=== PATIENT | male | born 1980 | race Caucasian/White ===

== ENCOUNTER → 2016-12-29 | Outpatient (CLI) | payer OTHER | LOC: RAD 08:17 | PROVIDERS: ATTEND Physician Assistant | DX: M54.16 Radiculopathy, lumbar region (principal) | CPT/HCPCS: 72148 ==

== ENCOUNTER 2018-12-05 17:34 | Emergency (ER) | payer OTHER ==
[2018-12-05] MEDS ORDERED: LIDOCAINE 2% INJ (20 MG/ML) 20 ML MDV INJ ONE (18:28)
[2018-12-05] MEDS ORDERED: DIPH/PERTUSS(ACELL)/TETANUS VAC/PF 0.5 ML SYR (>=10YO) IM ONE ×2 (18:39→22:22)
--- NOTE | 2018-12-05 18:39 | ER Document Report ---
ED General - General Chief Complaint: Laceration Stated Complaint: LACERATION/RIGHT INDEX FINGER Notes: 38-year-old male with no past medical history presents to the emergency department for a laceration of his right index finger after smashing it on a work truck after some wood fell on it. He states he was wearing a glove, he felt a warm tucker and knew that it was bleeding so he took the glove off and put some pressure on it. He is able to move his fingers and has full sensation. Last tetanus greater than 5 years ago. No numbness or tingling. No fever, dizziness, lightheadedness. No shortness of breath no chest pain. No other complaints. TRAVEL OUTSIDE OF THE [place] IN LAST 30 DAYS: No - Related Data Allergies/Adverse Reactions: No Known Allergies Allergy (Unverified 12/05/18 17:38) Past Medical History - General Information source: Patient - Social History Smoking Status: Unknown if Ever Smoked Family History: None Patient has suicidal ideation: No Patient has homicidal ideation: No Renal/ Medical History: Denies: Hx Peritoneal Dialysis Review of Systems - Review of Systems Constitutional: See HPI EENT: No symptoms reported Cardiovascular: See HPI Respiratory: See HPI Gastrointestinal: No symptoms reported Genitourinary: No symptoms reported Male Genitourinary: No symptoms reported Musculoskeletal: See HPI Skin: See HPI Hematologic/Lymphatic: No symptoms reported Neurological/Psychological: See HPI Physical Exam - Notes Notes: PHYSICAL EXAMINATION: Reviewed vital signs and charting by RN GENERAL: Alert, interacts well. No acute distress. HEAD: Normocephalic, atraumatic. EYES: Pupils equal, round. Extraocular movements intact. ENT: Oral mucosa moist. NECK: Full range of motion. Supple. Trachea midline. EXTREMITIES: Moves all 4 extremities spontaneously. No cyanosis. Right index finger BACK: no cervical, thoracic, lumbar midline tenderness. No saddle anesthesia, normal distal neurovascular exam. NEUROLOGICAL: Alert and oriented x3. Normal speech. cranial nerves II through XII grossly intact. PSYCH: Normal affect, normal mood. SKIN: Warm, dry, normal turgor. Large longitudinal laceration on the right medial index finger that extends from the PIP to the MCP into the web between the index and ring fingers on the dorsal side. Active oozing blood. Did not visualize any bones, tendons or ligaments. Distal neurovascular exam intact, flexor and extensor tendons intact normal exam. Course - Re-evaluation Re-evalutation: 12/05/18 18:38 38-year-old male with right index finger laceration. Plan is to send him for x- ray of the right hand 3 views. Pending results will repair the wound with 5-0 Ethilon. Will give patient tetanus shot. 12/05/18 21:52 X-ray was negative for any fracture. Consult to Dr. Brennan to assess the wound. Wound repair completed after local anesthesia and wound cleansing. 5-0 Ethilon used. Patient tolerated the procedure well. Wound care instructions given with return precautions. 12/05/18 21:58 12/05/18 21:58 Procedures - Laceration/Wound Repair Right Proximal Finger 2nd digit Wound length (cm): 6 Wound's Depth, Shape: Irregular Laceration pre-procedure: Sterile PPE donned Anesthetic type: 2% Lidocaine Volume Anesthetic (mLs): 8 Wound explored: Clean, No foreign body removed Irrigated w/ Saline (mLs): 250 Wound Debrided: Minimal Wound Repaired With: Steri-strips Suture Size/Type: 5:0, Ethilon Layer Closure?: No Post-procedure wound care: Sterile dressing applied Post-procedure NV exam normal: Yes Complications: No Discharge - Discharge Clinical Impression: Laceration Condition: Good Disposition: HOME, SELF-CARE Instructions: Antibiotic Ointment Protection ([facility]), Laceration Care ([facility]), Oral Narcotic Medication ([facility]), Soap Cleansing ([facility]), Tetanus Immunization Given ([facility]) Additional Instructions: Please return to your primary doctor, the ED, or an urgent care in 7 days for suture removal. Return immediately if you develop spreading redness around the wound, pus from the wound, worsening pain, or a fever of >101. Keep the area clean and dry. Wash gently with soap and water twice daily and cover with antibiotic ointment. Forms: Return to Work
--- NOTE | 2018-12-05 18:52 | RADIOLOGY REPORT (SQ) ---
EXAM DESCRIPTION: HAND RIGHT 3 VIEWS COMPLETED DATE/TIME: 12/05/2018 6:43 pm REASON FOR STUDY: crush injury COMPARISON: None. EXAM PARAMETERS: NUMBER OF VIEWS: Three views. TECHNIQUE: AP, lateral and oblique radiographic images acquired of the right hand. LIMITATIONS: None. FINDINGS: MINERALIZATION: Normal. BONES: No acute fracture or dislocation. No worrisome bone lesions. JOINTS: No effusions. SOFT TISSUES: No soft tissue swelling. No foreign body. OTHER: No other significant finding. IMPRESSION: NEGATIVE STUDY OF THE RIGHT HAND. NO RADIOGRAPHIC EVIDENCE OF ACUTE INJURY. TECHNICAL DOCUMENTATION: JOB ID: [id number] [employer]- All Rights Reserved Reading location - IP/workstation name: [email or web address]
[2018-12-05] MEDS ORDERED: HYDROCODONE/ACETAMINOPHEN 5-325 MG (6 TAB/ER DISP) PO PRN (21:55)
[2018-12-05 22:51] VITALS: BP 142/93
== END 2018-12-05 22:51 | disposition home or self-care (01) ==
LOC: ER 17:34
DX: S61.210A Laceration without foreign body of right index finger without damage to nail, initial encounter (principal); W22.8XXA Striking against or struck by other objects, initial encounter; Y99.0 Civilian activity done for income or pay; Z23 Encounter for immunization
CPT/HCPCS: 99283; 90471; 73130; 90715; 12002; J3490

== ENCOUNTER → 2020-03-29 | Outpatient (CLI) | payer OTHER | LOC: OD 10:48 | PROVIDERS: ATTEND Otolaryngology | DX: J30.9 Allergic rhinitis, unspecified (principal) | CPT/HCPCS: 36415; 82785; 86003 ==